=== PATIENT | male | born 2000 | race Caucasian/White ===

== ENCOUNTER 2019-01-21 08:55 | Outpatient (RCR) | payer OTHER, MEDICAID, SELFPAY ==
[2017-08-26] VITALS: BMI 36.3
--- NOTE | 2019-01-21 09:05 | BH.SGPN.GN ---
Behaviors/Verbalizations/Mental Status: [] Eye contact is good. Motor activity is appropriate. Appearance is disheveled. Speech is Appropriate. Mood is depressed. Affect is flat. Thoughts are linear and logical. No evidence of psychosis. Reviewed daily check in sheet and no reports of suicidal ideations or intent. Client Response/Progress/Benefit: [] Pt spoke when prompted. Attentive. This was pt's first day in the IOP program. Introduced himself to the group. Shared that he related to some of what other peers were talking about regarding being overly emotional. Shared that he is constanly anxious and depressed. Discussed how this impacts his daily likfe and relationships. No progress noted as this was first day. Benefited from group support and encouragement. Will continue in [facility] to maintain safety, improve coping skills, and increase daily functioning. Narrative Note: []
--- NOTE | 2019-01-21 10:05 | BH.SGPN.GN ---
Behaviors/Verbalizations/Mental Status: []Pt eye contact good, casually dressed, motor activity appropriate, speech normal rate and tone, mood euthymic, congruent affect, thoughts linear and intact, no evidence of delusions or hallucinations. Client Response/Progress/Benefit: []Client responded well to session evidenced by providing input throughout discussion and activity. Client reporting viewing situations as impossible makes you believe you can't overcome the situation. Client nodded that viewing situations as impossible can negatively impact one?s mental health. Client agreed with peers comments that seeing things as impossible sets you up to not try new things or to overcome difficult situations. Client engaged in the group activity and the group did not complete the activity during second group. Despite lack of success, client did not fall into fixed thinking pitfalls and stayed active. Client appeared to benefit from gaining awareness how viewing situations as impossible can negatively impact mental health progress. Client first day in [facility] and was an active participant. Narrative Note: []
--- NOTE | 2019-01-21 11:10 | BH.SGPN.GN ---
Behaviors/Verbalizations/Mental Status: [Client maintained good eye contact, disheveled, grooming and hygiene not cared for, motor activity appropriate, speech normal rate and tone, mood anxious and depressed, affect congruent, thoughts linear, logical, no evidence of delusions or hallucinations.]] Client Response/Progress/Benefit: [Pt attentive, did well to remain engaged and provide input during discussion and growth mindset reflection activity. He was actively listening and providing insight as group brainstormed on how fixed mindset thoughts experienced in the activity impacted ability to complete the task at hand. Pt indicated connecting with thoughts of ?it?s too hard? or ?we?ll never get it? which resulted in becoming increasingly frustrated and less likely to try. He worked with group to identify important components of a growth mindset and indicated that growth mindset allows us to overcome setbacks more easily. With reflection and assistance from the group he was able to apply cognitive restructuring to reframe fixed thoughts of ?I?ll never accomplish things, I?m too stupid? with growth mindset thought of ?By being open to new things like coping skills, I can make progress?. Benefitted from discussing benefits of growth mindset and strategies for reframing fixed thoughts. Progress in pt ability to challenge self to increase in engagement and provide input to the group despite it being his first day, did well to honestly discuss fixed thoughts. Continued IOP tx recommended to increase insight and ability to apply thought challenge skills, improve healthy coping and boundaries, as well as maintain safety.] Narrative Note: []
--- NOTE | 2019-01-21 14:55 | BH.MDN_ITS ---
Multi-Disciplinary Note - Note 30-min Individual Time Started:: 12:29 Date: 01/21/19 Purpose of session/treatment goals addressed:: Purpose of this session was to begin building rapport with pt and process first day in IOP. Another purpose was to assess current symptoms, circumstances leading to IOP admission, and begin to work on developing treatment plan goals. Eye Contact:: Good Motor Activity:: Appropriate Appearance:: Disheveled - clothing dirty and torn, hygiene unattended to Speech:: Appropriate Mood:: Depressed Affect:: Congruent Thoughts:: Linear, Logical, No evidence of hallucinations/delusions noted Staff Interventions:: Therapist asked open ended questions to elicit information regarding adjustment to IOP program, as well as current symptoms, stressors, and supports. Actively listened and provided empathic responses to aid in nor malizing pt emotions and responses to trauma triggers. Applied components of Motivational Interviewing to begin identifying treatment goals and pt perception of barriers in maintaining mental health. Client Response:: Pt was receptive of session and indicated that the first day was overall a positive experience despite some initial anxiety about the group setting. He went on to discuss feeling hopeful that the program will help him to better understand himself and continue to work towards finding purpose. He indicated that he has been experiencing increased levels of anxiety and depression for the past year and attributes this to worry about his future and preparing for living independently now that he is an adult. Pt discussed that these symptoms have recently been exacerbated by girl troubles with someone he has been dating. He explained that differences in expectations for the relationship as well as both of their trauma histories have been a major source of tension. Pt noted that he has been more emotional, experiencing passive thoughts of without plan or intent, and increased pressure to prove himself. Shared that he wants to increase his ability to communicate without becoming overwhelmed by emotion as this has resulted in pt saying things he does not mean. Additionally, discussed a desire to increase self-confidence and learn ?how to better myself? as well as increase insight into how PTSD impacts his relationships and better understand how to identify and manage trigger. Pt is currently linked with a case packer and sealer from the [facility] program, however does not have an outpatient therapist or psychiatrist. Risks/Concerns:: Pt denies any active suicidal ideations, plan, or intent as of this date 01/21/19. Reports passive thoughts of last night but denies suicidal ideation, plan, or intent at that time. Indicates an ability to maintain safety and reports his future is a motivation for living. No risks or concerns noted. Progress Toward Goals/Plan:: Limited progress noted as this was pt's first day in IOP. Reports connecting well with the group and finding the topic today as beneficial. Pt reports feeling more hopeful and and is looking forward to identifying new ways to improve metal health and stability. Plan is to begin IOP tx with focus on boundaries, self-care, and healthy communication/relationships Time Stopped:: 13:02
--- NOTE | 2019-01-21 15:22 | BH.COMM ---
Communication Note - Communication with Client Communication Note: Therapist contacted pt Lighting Engineer to discuss coordination of care, treatment goal planning, and relevant historical information regarding previous tx. Lighting Engineer indicates pt is to begin individual outpatient counseling and psychiatry services with [facility] in March following completion of this IOP program. Will continue to follow-up regarding pt concerns and tx progress.
--- NOTE | 2019-01-21 15:25 | BH.COMM_ITS ---
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 Coal Cutting Machine Operator indicates pt is to begin individual outpatient counseling and psychiatry services with [facility] in March following completion of this IOP program. Will continue to follow-up regarding pt concerns and tx progress.
--- NOTE | 2019-01-21 15:25 | BH.MTP ---
Master Treatment Plan - Patient Information Program Physician:: Dr. Nestor Childs Primary Therapist:: FRANCISCO Morales - Psychiatric Diagnoses Psychiatric Diagnoses:: Psychotic Disorder Unspecified; PTSD; Adjustment Disorder w/ Anxiety, Borderline Personality Disorder Diagnosis Code(s):: F29 - Estimated LOS Estimated LOS (in weeks):: 6 Problem/Goal #1 - Problem/Goal #1 Stated Goal:: Client will increase mood stability and decrease suicidal ideation and negative emotions due to Psychotic Disorder Unspecified through [facility] services. Description of Barriers: Client reports history of trauma from childhood and has additionally experienced trauma as an adult associated with toxic relationships. Client has a hx of impulsivity. Hx of paranoia including urges auditory hallucinations. Hx of residential treatment and inconsistent living arrangements. Pt reports that current stressors include; financial stress, lack of social support, hx of impulsivity, feelings of hopelessness, worthlessness, difficulties managing emotions, paranoia, lack of concentration, lack of motivation, intrusive thoughts, and difficulties in managing anxiety. Client reports limited awareness of warning signs and triggers. Client endorses numerous distorted thoughts that reinforce mental health symptoms and cause interpersonal relationship issues. Functional Impact: Pt currently endorses a depressed mood, lack of energy, lack of concentration, lack of motivation, avoidance behaviors, increased sx of depression and anxiety, rumination, emotional dysregulation, hopelessness, worthlessness, irritability, lack of connection with others, and difficulties with sleep. Client's symptoms are interfering with social and occupation functioning. Goal Relevant Strengths/Supports: Client presents as kind, intelligent, resilient, and motivated to improve mental health. - Objectives Objective #1 Stated Objective: Client will identify 2-3 triggers and 2-3 coping skills to reduce her depressive symptoms that lead to suicidal thinking as shown by decreased DSM-5 cross-cutting score for depression. Interventions: Therapist will help client identify her triggers and teach client various coping strategies to effectively cope with depressive symptoms. Discharge Criteria: Client will have achieved this goal when can identify at least 2 triggers, verbalize and implement two healthy coping strategies, and no longer report suicidal ideation. Pt will also display decrease in symptoms of depression on DSM-5 cross-cutting inventory. Target Date: 04/03/19 Review Date: 03/20/19 Objective #2 Stated Objective: Identify at least 2-3 negative self-talk messages used to reinforce feelings of worthlessness and replace thoughts with positive messages. Interventions: Therapist will help client identify distorted, negative beliefs about self and replace with more realistic, affirmative messages. Discharge Criteria: Client will have achieved this goal when can verbalize at least 2 negative self-talk messages and effectively replace those thoughts with affirmative messages. Target Date: 04/03/19 Review Date: 03/20/19 Problem/Goal #2 - Problem/Goal #2 Stated Goal:: Stabilize anxiety level while increasing ability to function and decreasing ruminative thoughts that reinforce paranoia and symptoms of psychosis on a daily basis through Intensive Outpatient Program. Description of Barriers: Client reports history of trauma from childhood and has additionally experienced trauma as an adult associated with toxic relationships. Client has a hx of impulsivity. Hx of paranoia including urges auditory hallucinations. Hx of residential treatment and inconsistent living arrangements. Pt reports that current stressors include; financial stress, lack of social support, hx of impulsivity, feelings of hopelessness, worthlessness, difficulties managing emotions, paranoia, lack of concentration, lack of motivation, intrusive thoughts, and difficulties in managing anxiety. Client reports limited awareness of warning signs and triggers. Client endorses numerous distorted thoughts that reinforce mental health symptoms and cause interpersonal relationship issues. Functional Impact: Pt currently endorses a depressed mood, lack of energy, lack of concentration, lack of motivation, avoidance behaviors, increased sx of depression and anxiety, rumination, emotional dysregulation, hopelessness, worthlessness, irritability, lack of connection with others, and difficulties with sleep. Client's symptoms are interfering with social and occupation functioning. Goal Relevant Strengths/Supports: Client presents as kind, intelligent, resilient, and motivated to improve mental health. - Objectives Objective #1 Stated Objective: Client will identify 2-3 anxiety and stress related triggers which contribute to increased symptoms of anxiety and psychosis/paranoia. Pt will learn and be able to implement 2-3 healthy coping skills to manage symptoms as shown by decreased DSM-5 cross-cutting score for anxiety and psychosis. Interventions: Therapist will help client increase awareness of anxiety and stress triggers and educate client on ways stress and anxiety impact overall health as well as can contribute to symptoms of paranoia. Therapist will teach client various heathy coping skills to manage triggers and prevent further escalation of symptoms. Therapist will assist client in identifying warning signs, triggers, and maladaptive coping skills. Therapist will utilize self-coaching, calming skills, and other CBT techniques to promote anxiety management and decrease psychosis. Therapist will discuss the benefit of communication and self-awareness on improving anxiety management and reduce psychosis. Discharge Criteria: Client will have accomplished this goal when can report at least 2 triggers for anxiety and paranoia, as well as state using 2 healthy strategies to manage symptoms. Additionally, client will have accomplished this goal when her DSM-5 cross-cutting scores show a decrease in anxiety and paranoia. Target Date: 04/03/19 Review Date: 03/20/19
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
--- NOTE | 2019-01-24 09:05 | BH.SGPN.GN ---
Behaviors/Verbalizations/Mental Status: []Client alert and oriented, disheveled appearance. Eye contact good. Motor activity appropriate. Speech tangential, rambling. Affect congruent, mood anxious. Thoughts linear, logical, no signs of hallucinations or delusions. Reviewed client?s symptom tracker, no risk for suicidal ideation, plan, or intent as of 01/24/19. Client Response/Progress/Benefit: []Client responded well to session, engaged throughout. Client reports feeling ?mixed emotions? today. Client?s mental health positive is that he had an open conversation with the girl he is seeing. Client shared he was encouraged by his IOP therapist to have a conversation about his expectations for the relationship and to help set clearer boundaries. Client reported he is proud of himself for doing it and it mostly went well. However, client stated he continues to feel jealous and torn because the girl he is seeing is openly seeing another man as well. Client stated, ?I told her it was okay with me, so I shouldn?t be upset.? The integration consultant helped client recognize his emotions are valid and that it may be beneficial to further explore what his needs and wants are for this relationship. Client appeared to benefit from processing his stressor and receiving feedback. Progress limited as client recently started IOP, but he seems to be assimilating well into the group setting. Client to continue IOP to prevent decompensation and reduce depressive symptoms.
--- NOTE | 2019-01-24 11:20 | BH.SGPN.GN ---
Addendum entered and electronically signed by FRANCISCO Morales 10/01/19 15:42: Pt note for second group not saved for this date due to error. Amended to include missing documentation. Please Advise. Group Topic: [Stress] # of Participants: [9] Goal of Group: [To increase understanding of what stress is, identify current life stressors, and connect impact stressors have on mental health] Staff Interventions: [Therapist facilitated discussion about stress. Therapist facilitated an activity in which group members were asked to identify various stressors they have in their life currently. Therapist instructed group members to indicate if certain stressors were larger than others. Therapist led processing of each member?s stress jar and helped them connect impact the stress has on their mental health.] Behaviors/Verbalizations/Mental Status: [Client alert and oriented, casually dressed, disheveled. Eye contact fair to good. Motor activity appropriate. Speech within normal limits. Affect congruent, mood dysthymic. Thoughts linear, logical, no signs of hallucinations or delusions. ] Client Response/Progress/Benefit: [Pt receptive of session, actively listening, contributing some to discussion on stress though mostly a passive participant. Pt agreed with group that stress can have both healthy and unhealthy aspects depending on how you learn to manage it. He worked with the group to identify impacts of unmanaged stress and reported if a person does not manage stress it can result in becoming overwhelmed, increased anger, and lead to lashing out on others or shutting down. Shared that when managed, stress can be motivating. He appeared to benefit from gaining awareness of current stressors and learning about the impact stress has on overall wellbeing. Participated in activity identifying current stressors impacting mental health. Pt's current stressors include: managing mental health sx, finances, and relationship problems. Progress noted in pt ability to identify positive effects of stress as well as own areas for improvement. Recommended continued IOP tx to reduce depression, promote change behaviors, and prevent decompensation.] Original Note: Behaviors/Verbalizations/Mental Status: []Client alert and oriented, disheveled in appearance. Eye contact good. Motor activity appropriate. Speech within normal limits. Affect constricted, mood dysthymic. Thoughts linear, logical, no signs of hallucinations or delusions. Client Response/Progress/Benefit: []Client was an engaged participant AEB listening to others and providing input at times. Client worked with the group to complete the challenge activity. Client expressed frustration throughout the activity and blamed external reasons for the group struggling to accomplish the challenge. Group identified barriers of stress management to include taking on the biggest stressor at once, not asking for help, and avoidance. Client actively listening during discussion about the 4 A's of managing stress. Expressed wanting work on accepting his past instead of feeling guilty for past choices. Client seemed to benefit from increased awareness of the impact of stress on mental health and increasing repertoire of stress management strategies. Will continue IOP tx to increase healthy coping, challenge distorted thoughts and prevent decompensation. Narrative Note: []
--- NOTE | 2019-01-25 08:07 | BH.COMM ---
Communication Note - Communication with Client Communication Note: Pt scheduled for group on this date however upon arrival indicated not feeling well. Pt appearing disheveled AEB dirt and torn clothing, poor personal hygiene. Pt met briefly with this therapist and explained that he had not slept the past two nights and is having difficulties focusing. Indicated that he has been expiring ?flashbacks? and night terrors which impact sleep. Additionally, noted seeing ?shadows? which he is afraid will become worse when in the group setting. Pt agreeable to discussing a plan for the weekend as well as coping skills he can use to manage triggers. Pt denying any SI/HI, plan, or intent as of this date, 01/25/19. Indicates ability to maintain safety. Willing to follow-up with psychiatry prior to leaving for the day.
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
--- NOTE | 2019-01-25 14:46 | BH.DR.ITP ---
Initial Treatment Plan - Patient Information Visit Information: ADMISSION DATE: EXPECTED LOS: 4-6 weeks Diagnoses:: Psychotic disorder unspecified; PTSD; adjustment disorder with anxiety; borderline personality disorder - Problems/Symptoms Problem #1:: Borderline personality disorder Symptom:: Mood swings; empty feelings; impulsivity; relationship problems Problem #2:: psychotic disorder Symptom:: hallucinations; paranoia Problem #3:: PTSD Symptom:: nightmares, flashbacks
--- NOTE | 2019-01-29 09:55 | BH.COMM ---
Communication Note - Communication with Client Communication Note: Pt called to indicate needing to cancel IOP for the week due to transportation issues. Pt to coordinate with medical case worker to resolve transportation and return next week. Will follow up
--- NOTE | 2019-02-05 16:22 | BH.MDN ---
Multi-Disciplinary Note - Note 60-min Individual Time Started:: 11:23 Date: 02/05/19 Purpose of session/treatment goals addressed:: The purpose of this session was to address client's current symptoms, stressors, and negative thinking patterns reinforcing mental health symptoms. Another purpose was to discuss cognitive triangle and it?s impact on maintaining depression. Eye Contact:: Good Motor Activity:: Appropriate Appearance:: Disheveled, Casual Speech:: Appropriate Mood:: Depressed Affect:: Congruent Thoughts:: Linear, Logical, No evidence of hallucinations/delusions noted Staff Interventions:: Therapist used active listening and open-ended questions to explore client's current stressors, symptoms, and barriers. Therapist provided psychoeducation on cognitive triangle and helped client gain insight into negative thinking patterns reinforcing mental health sx. Therapist gently challenged client on distorted thoughts. Therapist used motivational interviewing to promote change behaviors and help client set small goals to reduce isolation. Client Response:: Client responded well to session, open to meeting with therapist. Client reports he continues to feel depressed and often apathetic about life, indicating feeling stuck or held back by current circumstances. Pt provided the example of limited transportation preventing him from attending last week and financial stress which impacts his ability to engage in activities he believes would be enjoyable. Discussed spending a majority of his time isolated in his apartment and is often playing video games or watching movies. Pt indicated that he finds this enjoyable to an extent but feels he could find more purpose doing something else. Insight that lack of motivation impacts his willingness to follow through with trying new activities he might find enjoyable. Additionally notes negative thoughts regarding his own self-worth and ability to be successful. Pt shared this is reinforced when confronted with reminders of his past mistakes. Attentive during discussion regarding cognitive triangle and relationship between thoughts, emotions, and behaviors. Pt did well to create his own example of cognitive triangle and expressed recognizing how his negative thoughts contribute to ongoing depression. Worked with therapist to identify small goals for challenging negative thoughts and increasing engagement in other than video games or movies. Pt suggested that he could go for a walk as it would change his environment and get him physically active, identified this as his small goal for the evening. Risks/Concerns:: Client denies any suicidal ideations, plan, or intent. Client reports ability to maintain safety and is future oriented. Progress Toward Goals/Plan:: Client reports ongoing difficulties with managing sx of depression, specifically that of negative thinking impacting self-esteem. Reports ongoing isolative behaviors and avoidance. Noted continued relationship tension which may also be impacting negative self-talk and preventing progress. Pt able to work to begin reframing distortions and identifying small ways to begin reducing isolation and breaking the cycle of depression. Time Stopped:: 12:52
--- NOTE | 2019-02-06 09:56 | BH.COMM_ITS ---
Communication Note - Communication with Client Communication Note: Pt called to indicate needing to cancel IOP for the week due to transportation issues. Pt to coordinate with caser to resolve transportation and return next week. Will follow up
--- NOTE | 2019-02-11 16:23 | BH.MDN ---
Multi-Disciplinary Note - Note 30-min Individual Time Started:: 09:21 Date: 02/11/19 Purpose of session/treatment goals addressed:: Purpose of this session was to assess current symptoms, stressors, and tx progress. Another purpose was to increase awareness of personal warning signs and triggers. Eye Contact:: Good Motor Activity:: Appropriate Appearance:: Disheveled Speech:: Appropriate Mood:: Depressed Affect:: Congruent Thoughts:: Linear, Logical, No evidence of hallucinations/delusions noted Staff Interventions:: Therapist asked open ended and furthering questions to gather additional information regarding pt's current symptoms, stressors, and progress in treatment. Therapist used empathic responses to provide emotional validation. Aided pt in increasing awareness of personal warning signs and triggers for mood instability. Therapist applied PA techniques to promote healthy change behaviors. Client Response:: Pt open to meeting with this therapist and engaged throughout session. He reports that ?things have been going pretty well? but that he was feeling more depressed over the weekend. Expressed that his emotions often are associated with what is going on around him which indicates awareness of externalization. Discussed that the woman he has been dating has not been over in the past two weeks which he attributes to increased depression and isolation. Discussed knowing that the relationship is toxic but that he is having difficulties in accepting that she is taking a step back. Noted feeling rejected and having more negative thought, but that he has been actively working to challenge these thoughts by taking time to think about what he can do to continue to make progress rather than stay in his depressive thoughts. Worked with therapist to begin challenging distortions as well. Shared looking into securing employment and has considered getting application. Expressed some concerns in his ability to regulate his mood in the workplace and identified wanting to increase ability to recognize warning signs and triggers in order to improve coping capabilities. Remainder of session spent discussing common warning signs pt has and potential strategies for maintaining regulated. Pt identified listening to Levi Zimmerman and prayer as calming skills he is willing to begin trying. Risks/Concerns:: None. Denied having any active suicidal ideations, plan, or intent as of this date. Progress Toward Goals/Plan:: Some regression. Pt notes that he is doing well today but has recently been struggling with increased depression and difficulties in managing his emotions. Shared often becoming triggered by others behaviors and reactions which impacts his own though process and may continue to influence thoughts about self. Pt struggles with consistency and continues to isolate due to low motivation levels. Noted that he has seen improvements in ability to begin planning for his future and expressed plans to begin looking for a job. Will continue IOP tx to prevent decompensation, improve anxiety management, and increase mood stability. Time Stopped:: 09:58
== END 2019-01-29 23:59 ==
LOC: BHIOP 08:55
PROVIDERS: Family Provider Pediatrics; PCP Pediatrics; Referring Provider Psychiatry & Neurology Psychiatry; Visit Provider Psychiatry & Neurology Psychiatry
DX: F23 Brief psychotic disorder (principal); F43.10 Post-traumatic stress disorder, unspecified; F43.22 Adjustment disorder with anxiety; F60.3 Borderline personality disorder; E66.9 Obesity, unspecified; Z79.899 Other long term (current) drug therapy; E66.3 Overweight
CPT/HCPCS: 99204; H2020

== ENCOUNTER 2019-02-06 09:00 | Outpatient (RCR) | payer OTHER, MEDICAID, SELFPAY ==
[2017-08-26] VITALS: BMI 36.3
--- NOTE | 2019-02-05 09:10 | BH.SGPN.GN ---
Behaviors/Verbalizations/Mental Status: [] Eye contact is good. Motor activity is appropriate. Appearance is disheveled. Speech is Appropriate. Mood is depressed. Affect is flat. Thoughts are linear and logical. No evidence of psychosis. Reviewed daily check in sheet and no reports of suicidal ideations or intent Client Response/Progress/Benefit: [] Pt was an active participant in group discussion. Provided feedback when appropriate. Shared with the group that he was not here last week due to transportation issues however is glad to be back. Reports that he has been utilizing skills and managing his emotions well since last IOP group. Increased socialization stating I've been pretty happy. Reports increase in irritability and admits that he struggles with being alone which is challenging b/c he lives alone however is using alternative ways to connect such as through video games. Shared his struggles with a group topic of haze when depressed and feeling numb and like a robot. Progress noted. Benefited from group support, encouragment, and feedback. Will continue in IOP to maintain safety, improve daily functioning, increase coping skills, and medication management. Narrative Note: []
--- NOTE | 2019-02-05 10:08 | BH.SGPN.GN ---
Behaviors/Verbalizations/Mental Status: []Client alert and oriented, disheveled appearance. Eye contact good. Motor activity appropriate. Speech within normal limits. Affect congruent, mood euthymic. Thoughts linear, logical, no signs of hallucinations or delusions. Client Response/Progress/Benefit: []Client responded well to session, providing input to session. Client connected with the quote and concept of having different chapters in one?s life. Client shared ?to change you have to take responsibility.? Group identified things that can prevent people from moving forward to their next chapter such as; fear of the unknown, negative thoughts, not taking responsibility, anger, and lack of awareness. Client helped group discuss the ?chapters of my life? handout and was able to make connections to emotions, thoughts, and actions in each chapter. Client unable to share his current chapter due to leaving group a few minutes early. Client appeared to benefit from increasing self-awareness of current chapter and barriers. Client appears to be progressing as shown by his increased optimism this week. However, client struggles with maintaining mood stability and consistently applying coping skills which may hinder progress.
--- NOTE | 2019-02-06 09:05 | BH.SGPN.GN ---
Behaviors/Verbalizations/Mental Status: [] Eye contact is good. Motor activity is appropriate. Appearance is disheveled. Speech is Appropriate. Mood is anxious. Affect is congruent. Thoughts are linear and logical. No evidence of psychosis. Reviewed daily check in sheet and no reports of suicidal ideations or intent. Client Response/Progress/Benefit: [] Pt was an active participant in group discussion. Provided appropriate feedback. Emotion for today is anxious. States unsure why he is feeling anxious as there is not trigger. Reports that he was motivated yesterday and cleaned his whole house. This is something that he has not done in in a very long time. Stated that after group her felt good and encouraged. Cleaning the house improved his mood and made him feel accomplished. Also reports increased socialization as he hung out with a friend. Overall states that he is positive today which is huge improvement from 2 weeks ago. Progress noted per pt report. Benefited from group support, encouragement, and feedback. Will continue in IOP to prevent decompensation, stabilize psychosis, and improve daily functioning to get back into work. Narrative Note: []
--- NOTE | 2019-02-06 10:10 | BH.SGPN.GN ---
Behaviors/Verbalizations/Mental Status: [] Eye contact is good. Motor activity is appropriate. Appearance is disheveled. Speech is Appropriate. Mood is euthymic. Affect is full. Thoughts are linear and logical. No evidence of psychosis. Client Response/Progress/Benefit: [] Pt was an active participant in group discussion and activity. Worked together with the group to define and identify difference between internal and external conflict. Group identified and discussed the benefits of internal/external conflict which includes; helps us get control over things, helps us resolve emotions, we get clarification and closure, helps us solve problems, helps us recognize and manage emotions, can decrease ruminations and stress, and reduces negative consequences of avoiding. Pt worked with group to identify barriers to overcoming conflict which included; thoughts, internal dialogue, our emotions, fear, being unable to control others, and people may not like me if I challenge them. Attentive during psychoeducation however did struggle at times with concepts on different conflict styles such as avoiding, accommodating, competing, and collaborative. Reviewed benefits and drawbacks to each style. Benefited as she was able to identify and define conflict as well as increase awareness of how conflict style impacts his mental health. Will continue in IOP to maintain safety, stabilize psychotic symptoms through medication, increase coping skills for anger and depression, and prevent decompensation Narrative Note: []
--- NOTE | 2019-02-06 11:20 | BH.SGPN.GN ---
Behaviors/Verbalizations/Mental Status: []Client alert and oriented, disheveled appearance. Eye contact good. Motor activity appropriate. Speech within normal limits. Affect congruent, mood euthymic, anxious. Thoughts linear, logical, no signs of hallucinations or delusions. Client Response/Progress/Benefit: []Client responded well to session, positive contributions. Client further processed his conflict resolution style. Client reported he used to be competing and aggressive, but now he is avoiding. Client shared he become avoiding due to fear that he would get into an altercation and go to intermediate. Client stated he wants to be able to be social again without fearing that he cannot effectively manage conflict. Client was encouraged to practice being collaborative during the activity. Client able to be collaborative at first, but then he became withdrawn. Client did continue to listen to strategies and barriers. Client helped the group identify things that positively and negatively impact conflict resolution. Client agreed with group that not managing emotions and personalizing negatively impacts ability to manage conflict. Client helped the group identify strategies such as communicating needs and taking breaks to improve conflict resolution. Client appeared to benefit from learning conflict resolution strategies and increasing self-awareness. Progress noted as client reports improved mood this week, but he continues to struggle with maintaining stability.
--- NOTE | 2019-02-11 10:15 | BH.SGPN.GN ---
Behaviors/Verbalizations/Mental Status: [] Eye contact is good. Motor activity is appropriate. Appearance is discheveled. Speech is Appropriate. Mood is depressed. Affect is flat. Thoughts are linear and logical. No evidence of psychosis. Client Response/Progress/Benefit: [] Pt was an active participant in group discussion and activity. Attentive during psychoeducation. Worked with the group to identify benefits to making changes in our lives which included; growth, new opportunities, new experiences, improved relationships, getting ourself out of our comfort zones, increasing our adaptability, and building confidence. Group then identified barriers to change or what keeps us from making changes which included; change can be risky, fear of the unknown, fear of failure, negative thinking, what if thinking, anxiety, and change is scary. Pt participated along with group in activity where they identified and discussed the emotions related to change. Benefited from increased awareness and understaging of emotions, benefits, and barriers related to change. Will continue in IOP to maintain safety, improve daily functioning to return to work, and stabilize mood and medications. Narrative Note: []
--- NOTE | 2019-02-11 11:17 | BH.SGPN.GN ---
Behaviors/Verbalizations/Mental Status: [Pt alert and oriented, casual dress, disheveled, grooming unattended to. Eye contact good. Motor activity appropriate, at times shaking leg. Speech within normal limits. Affect congruent, mood dysthymic, anxious. Thoughts linear, logical, no signs of hallucinations or delusions.] Client Response/Progress/Benefit: [Pt responded well to session, active participant and providing insight throughout discussion as well as asking pertinent questions. Participated in the challenge activity and helped the group process barriers associated with making change. Pt reported that lack of focus and poor self-confidence were barriers, whereas support and communication helped the group adapt to change. Pt appeared to connect with discussion regarding overcoming the costs of change by identifying potential benefits via decisional balance sheet. Identified a change he would like to make to improve mental health. Pt?s goal is to increase honesty with self. Pt reported potential benefits of change as: developing new healthy habits and improved mental health. Costs of not making the change included: loss of relationship, convincing self he does not really want change. Pt continues to struggle with negative thinking and lack of follow through. Progress noted in pt ability to identify MH benefits of change, however recommended continued IOP to maintain progress, increase healthy coping skill repertoire, and decrease anxiety.] Narrative Note: []
--- NOTE | 2019-02-13 09:10 | BH.SGPN.GN ---
Behaviors/Verbalizations/Mental Status: [] Eye contact is good. Motor activity is appropriate. Appearance is disheveled. Speech is Appropriate. Mood is euthymic. Affect is full. Thoughts are linear and logical. No evidence of psychosis. Reviewed daily check in sheet and no reports of suicidal ideations or intent. Client Response/Progress/Benefit: [] Pt was an active participant in group discussion. Emotion for today was positive. Stated that he began to make some changes in his like yesterday. Addressed conflict in a relationship which he states did not go well however was proud of himself for addressing conflict rather than avoiding. Set up boundaries and was assertive. Also reports some fear related to eventually being discharged from the program. Group provided feedback. Emotions continue to impact pt however has decreased isolation and depressive symptoms. Benefited from group feedback and encouragement. Will continue in IOP to prevent decompensation, improve daily functioning, and increase coping skills for depression and anger. Narrative Note: []
--- NOTE | 2019-02-13 10:10 | BH.SGPN.GN ---
Behaviors/Verbalizations/Mental Status: [] Eye contact is good. Motor activity is appropriate. Appearance is disheveled. Speech is Appropriate. Mood is anxious. Affect is congruent. Thoughts are linear and logical. No evidence of psychosis. Client Response/Progress/Benefit: [] Pt was an active participant in group activity and discussion. Pt along with other group members provided input and suggestions when identifying what internal/external forces are and the impact that these forces have on their mental health. Was able to identify strategies used during the experiential activity which could be used in managing internal and external forces such as; creating a plan, teamwork, communication, listening to others, using coping skills when frustrated, learning from mistakes, and recognizing accomplishments. Benefited from increased awareness of difference between internal and external forces on mental health. Will continue in IOP to prevent decompensation, improve functioning, and decrease isolation. Narrative Note: []
--- NOTE | 2019-02-13 11:20 | BH.SGPN.GN ---
Behaviors/Verbalizations/Mental Status: [Pt eye contact good, casually dressed, poor hygiene and appearing disheveled, motor activity appropriate, speech normal rate and tone, mood dysthymic, congruent affect, thoughts linear and intact, no evidence of delusions or hallucinations.] Client Response/Progress/Benefit: [Client receptive of session, listened attentively and provided to discussion. Connected with discussion regarding the positive and negative forces that impact mental wellness and provided feedback to peers. Client identified positive forces that aid in progressing toward mental health goals as: ability to cope with trauma hx and use it as a source of strength, respectfulness, kindness, and loyalty to others. Client indicated negative forces that prevent progress include: self-criticism, family as both a positive and negative force, and ruminating on past trauma. Client stated wanting to focus on increasing mental health sx management by trying to focus more on self-love via poetry and listening to music, as well as opening up with others. Client seemed to benefit from increased awareness of personal positive and negative forces in life and impact they have on mental health and wellness. Client to continue IOP level of care to decrease depression, increase healthy coping and communication, as well as prevent decompensation.] Narrative Note: []
--- NOTE | 2019-02-18 09:15 | BH.SGPN.GN ---
Behaviors/Verbalizations/Mental Status: []Client alert and oriented, disheveled appearance. Eye contact good. Motor activity appropriate. Speech within normal limits. Affect flat, mood content. Thoughts linear, logical, no signs of hallucinations or delusions. Reviewed client?s symptom tracker, no risk for suicidal ideation, plan, or intent as of 02/18/19. Client Response/Progress/Benefit: []Client responded well to session, receptive to feedback. Client reports feeling ?content? today due to waking up in a positive mood. Client shared he had a decent weekend for the most part, but Monday was ?shitty.? Client stated he lacked motivation and did not accomplish much on Monday. Client reported he was able to accomplish paying his bills over the weekend which was a positive. Client shared he has been trying to use positive self-talk today to stop himself from dwelling on the weekend. Client appeared to benefit from feedback from peers and reinforcement of healthy coping skills. Progress noted in client?s increased self-awareness of behaviors that reinforce depressive maintenance cycles. Will continue IOP tx to prevent decompensation and improve daily functioning.?
--- NOTE | 2019-02-18 10:20 | BH.SGPN.GN ---
Behaviors/Verbalizations/Mental Status: []Client alert and oriented, disheveled appearance. Eye contact good. Motor activity appropriate. Speech within normal limits. Affect constricted, mood euthymic. Thoughts linear, logical, no signs of hallucinations or delusions. Client Response/Progress/Benefit: []Client responded well to session, occasional input. Client appeared to connect with the topic of personal pitfalls and how they can prevent mental health progress. Client identified pitfalls as things that get a person off their path of wellness. Client identified examples of pitfalls such as anhedonia, low motivation, not using coping skills, and not taking medication. Client reported one needs self-awareness to prevent and overcome pitfalls. Client participated in the group activity and was able to connect that without communication and self-awareness, it is nearly impossible to avoid pitfalls.? Client appeared to benefit from increasing self-awareness of how pitfalls impact mental health. Client continues to struggle with poor self-hygiene and managing depressive symptoms. Client will continue tx to prevent decompensation and improve mood stability.
--- NOTE | 2019-02-18 11:20 | BH.SGPN.GN ---
Behaviors/Verbalizations/Mental Status: []Client alert and oriented, disheveled appearance. Eye contact good. Motor activity appropriate. Speech within normal limits. Affect flat, mood euthymic. Thoughts linear, logical, no signs of hallucinations or delusions. Client Response/Progress/Benefit: []Client was attentive and engaged during group discussion. Client completed a worksheet where he identified his own personal pitfalls. Personal pitfalls included: isolating, flashbacks, avoidance, lack of self-care, and negative self-talk. Group worked together to identify strategies to overcome personal and general pitfalls which included; setting small goals, positive self-talk, A.C.E, looking at evidence to challenge negative thoughts, mindfulness, self-reflection, and practicing self-compassion. Client identified one pitfall he wants to work on preventing and one coping skill to help client do this. Client?s pitfall was negative self-talk and his coping skill was to practice saying one-two positive self-talk statements when he catches himself being negative. Benefited from identifying personal and general pitfalls and strategies to over these pitfalls. Client has demonstrated progress with addressing his avoidance behaviors, but he continues to struggle with generalizing coping skills.
--- NOTE | 2019-02-19 09:10 | BH.SGPN.GN ---
Behaviors/Verbalizations/Mental Status: [] Eye contact is good. Motor activity is appropriate. Appearance is disheveled. Speech is Appropriate. Mood is euthymic. Affect is full. Thoughts are linear and logical. No evidence of psychosis. Reviewed daily check in sheet and no reports of suicidal ideations or intent. Client Response/Progress/Benefit: [] Pt was an active participant in group discussion. Provided appropriate feedback to peers. Shared with the group that he is feeling pretty good today. Shared that his mood has been positive recently. Check-in was short stating I don't have much to say today. Progress noted per pt report. Increased socialization. Continues to struggle with hygiene however per pt his affect has been stable. Will continue in IOP to prevent decompensation. Narrative Note: []
--- NOTE | 2019-02-19 10:20 | BH.SGPN.GN ---
Behaviors/Verbalizations/Mental Status: []Client alert and oriented, disheveled appearance. Eye contact good. Motor activity appropriate. Speech tangential at times. Affect congruent, mood euthymic. Thoughts linear, logical, no signs of hallucinations or delusions. Client Response/Progress/Benefit: []Client receptive of session and providing to discussion. Did well to participate in the activity and contributed to the discussion of the group topic of resilience. Client shared ?you?re always going to have hardships, it?s how you respond.? Client defined resilience as overcoming difficult situations in life. Client gave examples for how resilience can positively impact mental health and wellness. Client stated having a positive mindset and good supports can help a person become more resilient. Client engaged in small group discussion about the various strategies that can help strengthen one's resilience and provided examples of the benefits of self-awareness and courage and confidence in increasing resilience. Client seemed to benefit from increased awareness of various components that can contribute to increased resilience. Progress noted as client reports a more positive outlook on his mental health. However, client continues to struggle with low motivation, poor self-care, and difficulty maintaining stability.
--- NOTE | 2019-02-19 11:17 | BH.SGPN.GN ---
Behaviors/Verbalizations/Mental Status: [Client alert and oriented, casually dressed, disheveled. Eye contact fair to good. Motor activity appropriate. Speech within normal limits. Affect congruent to topic being discussed, dysthymic. Thoughts linear, logical, no signs of hallucinations or delusions.] Client Response/Progress/Benefit: [Client mostly engaged participant throughout which was evidenced by client providing some input to discussion and listening attentively to peers. Client worked cooperatively with peers to identify how each resiliency factor can help increase personal resiliency. At times he appeared to disengage and became distracted by phone, though able to re-engage with prompt. Client reported he wants to work on the resiliency component of ?nurture a positive view of yourself?. Client stated he will work on increasing personal resilience by improving ability to identify and challenge his negative self-talk to begin to improve his view of himself. Client appeared to benefit from identifying goal to improve personal resilience factors. Client to continue IOP to continue to encourage increased use of healthy coping skills, continue to reduce depression, increase mood stability, and prevent decompensation.] Narrative Note: []
--- NOTE | 2019-02-20 09:10 | BH.SGPN.GN ---
Behaviors/Verbalizations/Mental Status: [] Eye contact is good. Motor activity is appropriate. Appearance is disheveled. Speech is Appropriate. Mood is euthymic. Affect is full. Thoughts are linear and logical. No evidence of psychosis. Reviewed daily check in sheet and no reports of suicidal ideations or intent. Client Response/Progress/Benefit: [] Pt was an active participant in group discussion. Shared that his emotion for today is happy and comfortable. Discussed some recent events in which he utilized his coping skills and support. Is not isolating as much and reports that overall his thoughts are more positive than prior to IOP. Smiling and engaged in group. Provided feedback to peers. Progress noted per pt report. Benefited from group support, encouragement, and praise. Will continue in IOP to maintain gains, prevent decompensation, and stabilize mood to return to work. Narrative Note: []
--- NOTE | 2019-02-20 10:20 | BH.SGPN.GN ---
Behaviors/Verbalizations/Mental Status: [] Eye contact is good. Motor activity is appropriate. Appearance is disheveled. Speech is Appropriate. Mood is depressed. Affect is flat. Thoughts are linear and logical. No evidence of psychosis. Client Response/Progress/Benefit: [] Pt was an active participant in group discussion and activity. Along with the group pt identified the benefits to communicating emotions which include; benefits to venting, helps strengthen relationships, helps process conflict and other issues, encourages feedback and solutions, give us a new perspective on ourself and how others perceive us, and encourages honestly. Group identified the challenges to communicating emotions during stressful situations which include; not having the words to express ourselves, difficulty formulating thoughts, lack of trust, assumptions of how others will respond, fear of judgement, and fear of rejection. Attentive during psychoeducation on emotional regulation through self-awareness, self-regulation, and interpersonal effectiveness. Benefited from insight and awareness of the impact of emotions on communication and the importance of communication in stressful situations. Will continue in IOP to improve daily functioning, decrease isolative behaviors, increase coping skills, and stabilize mental health. Narrative Note: []
--- NOTE | 2019-02-20 11:20 | BH.SGPN.GN ---
Behaviors/Verbalizations/Mental Status: []Client alert and oriented, disheveled appearance. Eye contact good. Motor activity appropriate. Speech tangential at times. Affect congruent, mood euthymic. Thoughts linear, logical, no signs of hallucinations or delusions. Client Response/Progress/Benefit: []Client was an engaged participant in group discussion, taking notes and providing input. Attentive during psychoeducation on 4 zones of regulation. Client able to identify how he feels in each zone as well as how he acts in each zone. Also able to identify strategies to incorporate to support himself in each zone which included; positive self-talk, deep breathing, getting outside, and accomplishing small tasks. Client shared he is in the ?green zone? or the regulated alertness zone as client feels stable and calm. Client recognized he could benefit from staying bust today and being productive at home. Benefited from group from increased education on zones of regulation or stages of alertness for emotions and healthy coping skills to use for each zone.
--- NOTE | 2019-02-27 11:17 | BH.NA ---
Physical Data - Height/Weight Height: 1.73 m Weight:: 113.5 kg Weight in Pounds: 250.2 lbs Current Medication Compliance - Medication Compliance Do you take your medication as prescribed?: Yes Do you need assistance with taking medication?: No Have you had side effects from medication?: No Nutritional History - Appetite Nutritional Instructions:: If client shows signs of a swallowing problem, weight change of 10 pounds or more in the last month, or is on a diabetic diet, the physician will review and request a dietitian consult, as appropriate. All unintentional weight loss will be referred to the physician for decision on need for dietitian consult. Describe your appetite:: Good Have you noticed a change in your eating habits lately?: No Functional Assessment - Sleep Pattern Describe any problems with sleeping: Client notes that sleep has improved since starting on olanzapine. - Activities Motor Activity:: Functional Sensory/Communication Assess - Hearing Problems Do you have any hearing problems?: Adequate - Communication Problems Do you have difficulty understanding what people are saying?: No Do you have trouble putting your thoughts into words or expressing what you want to say?: Yes Do people ever have trouble understanding what you say?: No What is your primary language?: [place] Learning Assessment - Learning Barriers Learning Barriers:: Ready to learn Medical Problems/History - Pain Assessment Do you have acute or chronic pain?: No - Additional History Additional comments:: see PMHx in Summary Substance Abuse - Substance Abuse Please describe substance abuse in the last 30 days:: Denies ETOH and illicit subatnce use/abuse. Smokes 0.5ppd cigarettes. Excessive caffiene use of 6 beverages daily. Mental Status Summary - Mental Status Significant Findings/Observations on Appearance and Mood:: Aiden is A&Ox4, cooperative with interview, and makes fair eye contact. Grooming and hygiene are appropriate, casually dressed. Normal activity. Steady gait. Speech is clear and of normal rate and volume. Moderate anhedonia. Mood congruent affect. Logical associations and normal process. No symptoms of delusions. Endorses chronic hallucinations. Denies SI and HI. Fall Risk Assessment - Age Age: Less than 60 - Mental Status Mental Status: Willing & able to ask for assistance when needed - Physical Status Physical Status: No problems - Impairments Impairments: None - Elimination Elimination: Continent AND independent - Gait or Balance Gait or Balance: Walks independently - Hx of Falls History of falls in the past 6 months: No known history - Medications/Substances Psychotropics:: Antidepressants, Antipsychotics Medications/substances used within the past 24 hours or ordered to administer: 1-2 of the medications/substances listed above - Total Score Total Points:: 1 RN Summary of Impressions - Impressions Recommendations: Include psychiatric and medical issues, treatment planning recommendations, and discharge planning needs. Impressions: Psychiatric Issues: unspecified psychotic disorder, PTSD, adjustment disorder w/ anxiety, borderline personality traits, insomnia Impression: Medical Issues: N/A - Level of Care How do the client's current symptoms and functional deficits support need for this level of care?: Client endorses 1 month of decompensating mental health prior to starting in the IOP program; this was mainly triggered by the loss of his job. He endoreses isolative behaviors, high anxiety with panic attacks, and increased hallucinations. He has been having fewer nightmares since making medication changes several weeks ago and is sleeping better, in general. Client does endorse increased irritability recently, but is noting overall improvement in his mental health. IOP will continue to promote gains and prevent decompensation with skill training and social support.
--- NOTE | 2019-02-27 11:26 | BH.SGPN.GN ---
Behaviors/Verbalizations/Mental Status: [Pt eye contact good, casually dressed, appearance disheveled and grooming unkempt, motor activity appropriate, speech normal rate and tone, mood euthymic, anxious, congruent affect, thoughts linear and intact, no evidence of delusions or hallucinations.] Client Response/Progress/Benefit: [Pt was an engaged participant in group which was evidenced by participation in experiential activity as well as providing input throughout discussion. Pt did well to connect with discussion on barriers currently keeping them stuck. Identified assumptions, use of justification as an excuse, denial, personalization as current barriers to reaching desired reality. Through experiential activity group then worked together to develop strategies to overcome various obstacles. Pt identified challenging thoughts, setting small goals, holding self accountable, and increasing self-awareness as strategies to get closer to desired reality. Pt seemed to benefit from increased awareness of barriers and group brainstorming healthy strategies to overcome barriers. Progress noted with pt's ability to identify strategies for overcoming personal barriers to own mental health tx. Recommended continued IOP tx to increase use of behavior activation, reduce depressive symptoms through healthy skill application, and maintain stability.] Narrative Note: []
--- NOTE | 2019-02-28 09:03 | BH.SGPN.GN ---
Behaviors/Verbalizations/Mental Status: []Pt eye contact good, disheveled in appearance, motor activity appropriate, speech normal rate and tone, mood euthymic, flat affect, thoughts linear and intact, no evidence of delusions or hallucinations. Reviewed daily check in sheet and no reports of suicidal ideations or intent. Client Response/Progress/Benefit: []Pt was an active participant in group discussion, providing input and openly processing with the group. Emotion for today is happy. Pt indicated that he has been struggling with his relationship, but yesterday was able to decide with the other person to take a break from their friendship at this time. Pt stated it was not an easy decision, but with help from peers able to identify how the relationship was not helping his mental health. 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 Identified a second mental health positive was taking time to talk with his elderly neighbor whom doesn't get many visitors. Pt reported helping other people yesterday made him feel more positive. Progress noted in pt reporting improved mood and setting boundaries with unhealthy relationship. Continued IOP tx recommended to increase utilization of healthy skills, prevent decompensation, and continue to improve emotion regulation skills. Narrative Note: []
--- NOTE | 2019-02-28 10:05 | BH.SGPN.GN ---
Behaviors/Verbalizations/Mental Status: [Pt alert and oriented, eye contact good, casually dressed, appearance disheveled, motor activity appropriate, speech normal rate and tone, mood dysthymic, congruent affect, thoughts linear and intact, no evidence of delusions or hallucinations.] Client Response/Progress/Benefit: [Client engaged participant as shown by client?s contribution to discussion and helpful insight. Client participated in the discussion of the common myths about self-care including self-care is selfish, easy, makes us weak, and always fun. Client worked with group to debunk the myths about self-care. Client stated he believes self-care is essential in order to maintain healthy balance. Discussed that without self-care you can find yourself experiencing chaos and end up ?dropping things?. Client seemed to benefit from increased awareness of the importance of self-care. Client showing progress as shown by continued increase in engagement in group, though continues to struggle with consistent skill application outside tx environment. Will continue tx to identify and challenge distorted thoughts, reduce depression, foster independence, increase healthy change behaviors, and prevent decompensation.] Narrative Note: []
--- NOTE | 2019-02-28 11:15 | BH.SGPN.GN ---
Behaviors/Verbalizations/Mental Status: []Client alert and oriented, disheveled appearance. Eye contact good. Motor activity appropriate. Speech within normal limits. Affect constricted, mood dysthymic. Thoughts linear, logical, no signs of hallucinations or delusions. Client Response/Progress/Benefit: []Client responded well to session, active participant. Client further processed the activity and shared ?you can?t balance everything at once.? Client engaged in the discussion and self-assessment of the different areas of self-care. Client reported he can improve in areas of physical, psychological, social, and emotional self-care. Client reports belief that he is ?not doing well? in many areas of self-care right now, but he was receptive to setting goals. Client set a goal to improve his personal emotional self-care. Client?s goal is to work on accomplishing one responsibility a day. Client appeared to benefit from increasing awareness of how he can improve his self-care balance. Client?s progress is limited as client continues to report difficulty engaging in self-hygiene, reports ongoing isolation, and continues to experience emotional dysregulation. Client to continue IOP to prevent further decompensation and improve functioning.
--- NOTE | 2019-03-01 09:07 | BH.SGPN.GN ---
Behaviors/Verbalizations/Mental Status: [Pt alert and oriented, casual dress, grooming slightly disheveled - pt appearing to have bathed which diplays progress compared to baseline. Eye contact good. Motor activity appropriate. Speech within normal limits. Affect congruent, mood euthymic, anxious. Thoughts linear, logical, no signs of hallucinations or delusions. Reviewed pt?s dx symptom tracker and pt denies any SI, plan, or intent as of this date] Client Response/Progress/Benefit: [Pt engaged in group discussion, providing some input throughout. Emotion for today is happy but anxious. Pt indicated that his current ?mental health wins? include completing the new hygiene routine he established for himself and discussed that this is a win as hygiene is the first area of self-care to suffer when he is struggling with his mental health. Pt discussed feeling accomplished and motivated after getting up and showering this morning. Additional win noted was actually leaving the house and completing his grocery shopping tasks rather than isolating or putting it off. Pt appearing to benefit from spending time celebrating small wins with the group and progress noted in his ability to begin following through with behavior activation homework provided in individual session. Current stressors is continuing to maintain consistent with his new hygiene routine as pt reports follow through as an area of difficulty. Recommended continued IOP tx to promote change behaviors, reinforce use of healthy skills, and prevent decompensation.] Narrative Note: []
--- NOTE | 2019-03-01 10:43 | PCM.PN.BLA ---
Progress Note Chief Complaint: The patient is a 18-year old male who is an active participant in the intensive outpatient mental health treatment program at [facility]. He has a history of psychosis unspecified, anxiety, insomnia, and features of a borderline personality disorder. History of Present Illness/Interim History: The patient describes himself as doing pretty well. He said that the switch in medications to olanzapine has helped him be less agitated. He was becoming irritable on occasion, but said that this has settled down in recent weeks. He said that he used to become irritable when he walked down the street and thought the people were giving him a dirty look. Thinks that the intensive outpatient groups have been helpful. Tends to be more irritable and anxious when he is isolating himself. He tends to be in a better mood when he is interacting with others. He reported some transient depression. His hallucinations have decreased. Occasionally he still sees shadows, but this has improved with the switch to olanzapine. He is sleeping well with trazodone. Current Psychiatric Medications: Wellbutrin XL 300 mg every morning, trazodone 100 mg nightly, olanzapine 5 mg nightly Review of Symptoms: Psychiatry: Improving mood swings and irritability. He is not suicidal. His psychotic symptoms are improving. He is cognitively intact. Constitutional: He is obese and his weight has been steady. His energy level is fair. Mental Status Examination: The patient presents as a pleasant, calm male of overweight build who is socially awkward. He is sloppily dressed and groomed. His thoughts are logical and coherent. His mood swings have improved. He is not suicidal. His psychosis is improving. He is cognitively intact. Diagnoses: [place] I: Psychotic disorder and specified, adjustment disorder with anxiety, insomnia [place] II: Borderline personality disorder [place] III: Obesity Plan: I am continuing treatment with Wellbutrin XL, trazodone and olanzapine at the current doses. The patient will continue participation in the intensive outpatient groups. I will see him again for follow-up.
--- NOTE | 2019-03-01 11:25 | BH.SGPN.GN ---
Behaviors/Verbalizations/Mental Status: []Client alert and oriented, well groomed-client reports he showered. Clothes appear unwashed. Eye contact good. Motor activity appropriate. Speech within normal limits. Affect congruent, mood euthymic. Thoughts linear, logical, no signs of hallucinations or delusions. Client Response/Progress/Benefit: []Client attentive, did well to remain attentive during discussion and activity. He was contributing as group brainstormed on how fixed mindset thoughts experienced in the activity impacted ability to complete the task at hand. Client indicated he had fixed thoughts at the beginning of the activity. Client shared he knows the consequences of fixed thinking such as increased impulsivity and limited coping. Client reported having a growth mindset can lead to being more adaptable and open-minded. Worked with group to identify important components of a growth mindset. With reflection, client was able to apply cognitive restructuring to reframe fixed thoughts of ?I can?t do this, I can?t cope.? Client reframed this to ?I can do it if I put in the time and effort.? Benefitted from discussing benefits of growth mindset and strategies for reframing fixed thoughts. Client showed progress today as he showered and took care of his personal hygiene. Client continues to struggle with mood instability, isolation, and low motivation which maintains a depressive cycle. Client to continue IOP to prevent decompensation and increase application of healthy coping skills.
--- NOTE | 2019-03-08 16:12 | BH.DS_ITS ---
Discharge Summary - Demographics Date of Admission:: 01/21/19 Discharge Date: 03/08/19 Presenting Problems at Admission:: Pt is a 18 y/o male who was referred to [facility] tx by his Protective Service Specialist through the [facility] in [place]. Hx of depression, anxiety, PTSD, and visual hallucinations. Pt was referred due to increased symptoms of depression, anxiety, and PSTD impacting ability to fuction at baseline and resulting in pt leaving his job. Discharge Diagnoses:: Psychotic Disorder Unspecified; PTSD; Adjustment Disorder w/ Anxiety, Borderline Personality Disorder Reason for Discharge:: Pt requested discharge due to loss of transportation services due to no longer having access to Case Management services as a result of being discharged from the [facility] job readiness program. - Treatment Progress During Treatment & Response: Since admitting to [facility] program pt has made limited progress due to lack of motivation, inconsistent attendance, and difficulties in implementing healthy coping skills learned. Pt missed several days due to over sleeping, isolating, and committing to other plans at times that conflicted with scheduled group dates. Pt did well to remain medication c ompliant throughout duration of admission. Reported slight decrease in severity, duration, and frequency of depression and by end of admission was able to follow through with small goal of completing morning hygiene routine. Throughout admission, he continued to struggle with consistent stabilization and often experienced 1 or 2 good days followed by isolation, depression, and increased irritability. Reports days of more severe symptoms often correlated with relationship discord. Pt is able to verbalize healthy skills for crisis management, emotion regulation, and challenging irrational thoughts; however, again has not been consistent which has impacted ability to make progress. Issues Still to be Addressed:: Depression, mood management and emotion regulation, psychosis, healthy boundary setting, and locus of control. Discharge Recommendations/Instructions:: Encouraged to continue with [facility] level of care however pt reports he is unable to due to lack of transportation. Recommended to follow-up with outpatient counseling at [facility] with net appointment on 03/25/19 and his psychiatrist at Dr. Rajan at [facility]. Discharge Handout: Complete Discharge Handout with client on aftercare options and continuity of care.
== END 2019-03-01 23:59 ==
LOC: BHIOP 09:00
PROVIDERS: Family Provider Pediatrics; PCP Pediatrics; Referring Provider Psychiatry & Neurology Psychiatry; Visit Provider Psychiatry & Neurology Psychiatry
DX: F29 Unspecified psychosis not due to a substance or known physiological condition (principal); F43.22 Adjustment disorder with anxiety; F60.3 Borderline personality disorder; G47.00 Insomnia, unspecified; E66.9 Obesity, unspecified
CPT/HCPCS: 99213; H0035; H2012; H2020; T1002; 90832; 90837

== ENCOUNTER 2023-06-30 15:22 | Emergency (ER) | payer SELFPAY ==
[2023-06-30 15:24] VITALS: BP 134/70; PULSE 86; RESP 16; TEMP 36.4; O2SAT 97; BMI 38.5
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
[2023-06-30] MEDS: Doxycycline 100 MG CAPSULE PO (16:39)
== END 2023-06-30 16:42 | disposition home or self-care (01) ==
PROVIDERS: Emergency Provider Student in an Organized Health Care Education/Training Program; PCP Pediatrics; Visit Provider Student in an Organized Health Care Education/Training Program
DX: N34.2 Other urethritis (principal); K08.89 Other specified disorders of teeth and supporting structures; Z87.891 Personal history of nicotine dependence
CPT/HCPCS: 87491; 87591; 99283